=== PATIENT | male | born 1945 | race Caucasian/White ===

== ENCOUNTER → 2016-09-19 | Outpatient (CLI) | payer MEDICARE, OTHER ==
--- NOTE | 2016-09-19 10:48 | ECHOF ---
Referral Reason:R06.02 dyspnea R53.83 fatigue MEASUREMENTS -------- HEIGHT: 180.3 cm WEIGHT: 72.6 kg BP: 189/89 IVSd: 1.3 cm (0.6 - 1.1) LVIDd: 4.3 cm (3.9 - 5.3) LVPWd: 1.2 cm (0.6 - 1.1) IVSs: 1.5 cm LVIDs: 2.5 cm LVPWs: 1.8 cm LAESV Index (A-L): 24.72 ml/m Ao Diam: 4.2 cm (2.0 - 3.7) AV Cusp: 1.4 cm (1.5 - 2.6) LA Diam: 2.4 cm (2.7 - 3.8) MV EXCURSION: 16.312 mm (> 18.000) MV EF SLOPE: 86 mm/s (70 - 150) EPSS: 0.5 cm MV E Robles: 0.63 m/s MV DecT: 136 ms MV A Robles: 0.67 m/s MV E/A Ratio: 0.95 RAP: 5.00 mmHg RVSP: 21.38 mmHg FINDINGS -------- Sinus rhythm. This was a technically good study. There is mild concentric left ventricular hypertrophy. Overall left ventricular systolic function is normal with, an EF between 55 - 60 %. The right ventricle is normal in size and function. Normal LA size by volume 22+/-6 ml/m2. The right atrium is normal in size. The aortic valve is trileaflet, and appears structurally normal. No aortic stenosis or regurgitation. Aortic valve is trileaflet and is mildly thickened. The mitral valve leaflets are mildly thickened. Mild mitral annular calcification present. Mild mitral regurgitation is present. Mild tricuspid regurgitation present. The right ventricular systolic pressure, as measured by Doppler, is 21.38mmHg. Pulmonic valve appears structurally normal. Ascending Aortic Anuerysm measuring 4.2 cm Normal inferior vena cava with normal inspiratory collapse consistent with estimated right atrial pressure of 5 mmHg. The pericardium is normal. CONCLUSIONS -------- 1. Sinus rhythm. 2. The mitral valve leaflets are mildly thickened. 3. Mild mitral annular calcification present. 4. Mild mitral regurgitation is present. 5. Mild tricuspid regurgitation present. 6. The right ventricular systolic pressure, as measured by Doppler, is 21.38mmHg. 7. Pulmonic valve appears structurally normal. 8. Ascending Aortic Anuerysm measuring 4.2cm 9. Normal inferior vena cava with normal inspiratory collapse consistent with estimated right atrial pressure of 5 mmHg. 10. The pericardium is normal. 11. This was a technically good study. 12. There is mild concentric left ventricular hypertrophy. 13. Overall left ventricular systolic function is normal with, an EF between 55 - 60 %. 14. The right ventricle is normal in size and function. 15. Normal LA size by volume 22+/-6 ml/m2. 16. The right atrium is normal in size. 17. The aortic valve is trileaflet, and appears structurally normal. No aortic stenosis or regurgitation. 18. Aortic valve is trileaflet and is mildly thickened. FOOTWEAR STITCHER: Letty Koch RDCS
--- NOTE | 2016-09-19 11:23 | ECHOS ---
Referral Reason:R06.0s dyspnea R53.83 fatigue MEASUREMENTS -------- HEIGHT: 180.3 cm WEIGHT: 72.6 kg BP: WallScoring: string FINDINGS -------- Sinus rhythm. Utilizing the standard Charles protocol the patient was exercised for 9 minutes, 30 seconds, achieving a maximum heart rate of 139 , which is 92 % of predicted maximal heart rate. There was physiologic heart rate and blood pressure response to exercise. Max Heart Rate: 139 % of Max Predicted Heart Rate: 92 Rest Heart Rate: 69 Rest BP: 125/78 Max BP: 189/89 Mets Achieved: 11.1 The test was stopped because of fatigue. Sinus rhythm. In response to stress, the ECG showed no ST-T wave changes (see exercise report for details). In response to stress, the ECG showed no ST-T wave changes (see exercise report for details). There were normal blood pressure and heart rate responses to stress. LV size, wall thickness and systolic function are normal, with an EF of 60%. Echo images were acquired at peak stress which demonstrated appropriate augmentation of all left ventricular segments. CONCLUSIONS -------- 1. Sinus rhythm. 2. Sinus rhythm. 3. In response to stress, the ECG showed no ST-T wave changes (see exercise report for details). 4. In response to stress, the ECG showed no ST-T wave changes (see exercise report for details). 5. There were normal blood pressure and heart rate responses to stress. 6. LV size, wall thickness and systolic function are normal, with an EF of 60%. 7. Echo images were acquired at peak stress which demonstrated appropriate augmentation of all left ventricular segments. 8. XXX functional exercise capacity. No ECG or 2D echocardiographic evidence of inducible ischemia to achieved workload. LOGGING EQUIPMENT OPERATOR: Letty Koch RDCS
== END | disposition home or self-care (01) ==
LOC: RADNMMAIN 09:49
PROVIDERS: ATTEND Family Medicine
DX: R06.02 Shortness of breath (principal); R53.83 Other fatigue
CPT/HCPCS: 93017; 93306; 93350

== ENCOUNTER 2019-10-01 10:45 | Emergency (ER) | payer MEDICARE, OTHER ==
[2019-10-01 10:50] VITALS: RESP 18
--- NOTE | 2019-10-01 11:08 | ED ---
General Adult HPI - General Chief complaint: Urogenital Stated complaint: unable to urinate Time Seen by Provider: 10/01/19 10:50 Source: patient, RN notes reviewed, old records reviewed Mode of arrival: ambulatory Limitations: no limitations - History of Present Illness Initial comments: This is a 74-year-old male who presents emergency Department complaining of unable to urinate ever since he started Norflex. Patient states he is also not had a bowel movement for 2 days. Patient denies any other new medications. Patient denies any vomiting. Patient denies any fever chills. Patient states he has some pressure in the suprapubic region but there is no point tenderness. Patient denies any other symptoms at this time. - Related Data Allergies Allergy/AdvReac Type Severity Reaction Status Date / Time No Known Allergies Allergy Verified 10/01/19 10:50 Review of Systems ROS Statement: Those systems with pertinent positive or pertinent negative responses have been documented in the HPI. ROS Other: All systems not noted in ROS Statement are negative. Past Medical History Past Medical History: Hypertension Additional Past Medical History / Comment(s): enlarged prostate History of Any Multi-Drug Resistant Organisms: None Reported Past Surgical History: Hernia Repair Past Psychological History: No Psychological Hx Reported Smoking Status: Never smoker Past Alcohol Use History: Occasional Past Drug Use History: None Reported General Exam - General Exam Comments Initial Comments: GENERAL: Patient is well-developed and well-nourished. Patient is nontoxic and well- hydrated and is in moderate distress. ENT: Neck is soft and supple. No significant lymphadenopathy is noted. Oropharynx is clear. Moist mucous membranes. Neck has full range of motion without eliciting any pain. EYES: The sclera were anicteric and conjunctiva were pink and moist. Extraocular movements were intact and pupils were equal round and reactive to light. Eyelids were unremarkable. PULMONARY: Unlabored respirations. Good breath sounds bilaterally. No audible rales rhonchi or wheezing was noted. CARDIOVASCULAR: There is a regular rate and rhythm without any murmurs gallops or rubs. ABDOMEN: Patient is mildly distended in the suprapubic region and mildly tender SKIN: Skin is clear with no lesions or rashes and otherwise unremarkable. NEUROLOGIC: Patient is alert and oriented x3. Cranial nerves II through XII are grossly intact. Motor and sensory are also intact. Normal speech, volume and content. Symmetrical smile. MUSCULOSKELETAL: Normal extremities with adequate strength and full range of motion. LYMPHATICS: No significant lymphadenopathy is noted PSYCHIATRIC: Normal psychiatric evaluation. Limitations: no limitations Course Vital Signs 10/01/19 10/01/19 10:48 11:51 Temperature 98.3 F 98.5 F Pulse Rate 98 69 Respiratory 18 18 Rate Blood Pressure 148/106 143/90 O2 Sat by Pulse 98 95 Oximetry Medical Decision Making - Medical Decision Making Patient had a bladder scanner done and it showed that he had over a liter in his bladder. Patient had a Bangura placed and more than a liter of urine came out. Patient felt back to his baseline and wanted the leg bag placed to follow up with Dr. Sheehan on Sunday. - Lab Data Lab Results 10/01/19 Range/Units 11:16 Urine Color Yellow Urine Appearance Clear (Clear) Urine pH 7.0 (5.0-8.0) Ur Specific [place] 1.013 (1.001-1.035) Urine Protein Negative (Negative) Urine Glucose (UA) Negative (Negative) Urine Ketones Negative (Negative) Urine Blood Negative (Negative) Urine Nitrite Negative (Negative) Urine Bilirubin Negative (Negative) Urine Urobilinogen <2.0 (<2.0) mg/dL Ur Leukocyte Esterase Negative (Negative) Disposition Clinical Impression: Urinary retention Disposition: HOME SELF-CARE Condition: Good Instructions (If sedation given, give patient instructions): Urinary Retention in Men (ED) Additional Instructions: Patient should stop taking Norflex Is patient prescribed a controlled substance at d/c from ED?: No Referrals: Kennedy Scruggs MD [STAFF PHYSICIAN] - 1-2 days Time of Disposition: 11:55
--- NOTE | 2019-10-01 11:29 | XR ---
EXAMINATION TYPE: XR KUB DATE OF EXAM: 10/01/2019 COMPARISON: None INDICATION: Abdomen pain TECHNIQUE: Single view abdomen upright view FINDINGS: There is a nonspecific bowel gas pattern. Psoas margins are normal. No organomegaly is present. There is a 1.5 cm calcification overlying the inferior pole left kidney. Couple of additional calcifi cations are present laterally over the left iliac wing. IMPRESSION: 1. Nonspecific bowel gas pattern. 2. 1.5 x 0.5 cm calcification inferior pole left kidney.
[2019-10-01 11:47] LABS: Appearance,Urine Clear (Clear); Bilirubin,Urine Negative (Negative); Blood,Urine Negative (Negative); Color,Urine Yellow; Glucose,Urine (UA) Negative (Negative); Ketones,Urine Negative (Negative); Leukocyte Esterase,Urine Negative (Negative); Nitrite,Urine Negative (Negative); Protein,Urine Negative (Negative); Specific Gravity,Urine 1.013 (1.001-1.035); Urobilinogen,Urine <2.0 mg/dL (<2.0)
[2019-10-01 11:52] VITALS: BP 143/90; PULSE 69; TEMP 98.5
== END 2019-10-01 12:24 | disposition home or self-care (01) ==
LOC: EC 10:45
DX: N40.1 Benign prostatic hyperplasia with lower urinary tract symptoms (principal); R33.8 Other retention of urine
CPT/HCPCS: 51702; 74018; 81003; 99284

== ENCOUNTER 2019-10-06 04:23 | Emergency (ER) | payer MEDICARE, OTHER ==
[2019-10-06 04:32] VITALS: RESP 18; TEMP 98.1
[2019-10-06] MEDS ORDERED: LIDOCAINE URO-JET JELLY 2% 5 ML KIT URETHRAL ONE (04:58)
--- NOTE | 2019-10-06 04:58 | ED ---
Male Urogenital HPI - General Chief complaint: Urogenital Stated complaint: unable to urinate Source: patient Mode of arrival: ambulatory Limitations: no limitations - History of Present Illness Initial comments: Erick is a pleasant 74-year-old woman who was seen and evaluated 5 days ago for acute urinary retention, he reports that on Sunday the he removed his Bangura catheter, he reports he has not been able to urinate for 18 hours since then. His significant discomfort in the lower abdomen. Patient is to follow up with his urologist Dr. Sheehan today. - Related Data Home Medications Medication Instructions Recorded Confirmed Alfuzosin HCl [Alfuzosin HCl ER] 10 mg PO BID 10/01/19 10/01/19 Calcium/Magnesium/Zinc 1 tab PO DAILY 10/01/19 10/01/19 [Lrndrrs-Ngrhgovmd-Xpjy Tablet] Cholecalciferol [Vitamin D3 (25 1,000 unit PO DAILY 10/01/19 10/01/19 Mcg = 1000 Iu)] Cyanocobalamin (Vitamin B-12) 1,000 mcg PO DAILY 10/01/19 10/01/19 [Vitamin B-12] Fish Oil/Dha/Epa [Fish Oil 1,200 1 cap PO DAILY 10/01/19 10/01/19 mg Fish Oil] Folic Acid 0.4 mg PO DAILY 10/01/19 10/01/19 Losartan [Cozaar] 50 mg PO DAILY 10/01/19 10/01/19 Melatonin 5 mg PO HS 10/01/19 10/01/19 Multivit-Min/FA/Lycopen/Lutein 1 tab PO DAILY 10/01/19 10/01/19 [Centrum Silver Tablet] Saw [place] 500 mg PO DAILY 10/01/19 10/01/19 Turmeric Root Extract [Turmeric] 500 mg PO DAILY 10/01/19 10/01/19 Vitamin E 400 unit PO DAILY 10/01/19 10/01/19 Vits A,C,E/Lutein/Minerals 1 tab PO DAILY 10/01/19 10/01/19 [Ocuvite with Lutein Tablet] amLODIPine [Norvasc] 10 mg PO DAILY 10/01/19 10/01/19 Allergies Allergy/AdvReac Type Severity Reaction Status Date / Time orphenadrine [From Norflex] AdvReac unable to Verified 10/06/19 04:31 urinate Review of Systems ROS Statement: Those systems with pertinent positive or pertinent negative responses have been documented in the HPI. ROS Other: All systems not noted in ROS Statement are negative. Past Medical History Past Medical History: Hypertension Additional Past Medical History / Comment(s): enlarged prostate History of Any Multi-Drug Resistant Organisms: None Reported Past Surgical History: Hernia Repair Past Psychological History: No Psychological Hx Reported Smoking Status: Never smoker Past Alcohol Use History: Occasional Past Drug Use History: None Reported General Exam - General Exam Comments Initial Comments: Physical Exam GENERAL: Patient is well-developed and well-nourished. Patient is nontoxic and well-hydrated and is in no distress. HENT: Normocephalic, Atraumatic. EYES: PERRL, EOMI PULMONARY: Unlabored respirations. CARDIOVASCULAR: RRR Warm and well perfused extremities ABDOMEN: Non-distended SKIN: No rashes or bruising : Deferred NEUROLOGIC: Alert and oriented Normal speech Normal gait MUSCULOSKELETAL: Moving all extremities with no apparent injury PSYCHIATRIC: No SI/HI Limitations: no limitations Course Vital Signs 10/06/19 10/06/19 04:28 06:07 Temperature 98.1 F Pulse Rate 75 62 Respiratory 18 18 Rate Blood Pressure 146/103 134/97 O2 Sat by Pulse 98 98 Oximetry Medical Decision Making - Medical Decision Making Patient was seen and evaluated history obtained from patient and review of medical record Bladder scan reveals greater than 800 mL of urine in the bladder Bangura catheter was placed without difficulty, greater than 1 L drained in the first 15 minutes and Bangura was clamped Urinalysis no signs of infection Condition discharge home with Bangura catheter in place to follow up with urology - Lab Data Lab Results 10/06/19 Range/Units 05:21 Urine Color Yellow Urine Appearance Clear (Clear) Urine pH 6.5 (5.0-8.0) Ur Specific [place] 1.015 (1.001-1.035) Urine Protein Negative (Negative) Urine Glucose (UA) Negative (Negative) Urine Ketones Negative (Negative) Urine Blood Moderate H (Negative) Urine Nitrite Negative (Negative) Urine Bilirubin Negative (Negative) Urine Urobilinogen <2.0 (<2.0) mg/dL Ur Leukocyte Esterase Negative (Negative) Urine RBC 34 H (0-5) /hpf Urine WBC 3 (0-5) /hpf Hyaline Casts 4 H (0-2) /lpf Urine Mucus Rare H (None) /hpf Disposition Clinical Impression: Urinary retention Disposition: HOME SELF-CARE Condition: Stable Instructions (If sedation given, give patient instructions): Bangura Catheter Placement and Care (ED) Is patient prescribed a controlled substance at d/c from ED?: No Referrals: Rodney Funk DO [Primary Care Provider] - 1-2 days Michael Hernández MD [STAFF PHYSICIAN] - 1-2 days
[2019-10-06 05:31] LABS: Appearance,Urine Clear (Clear); Bilirubin,Urine Negative (Negative); Blood,Urine Moderate (Negative); Color,Urine Yellow; Glucose,Urine (UA) Negative (Negative); Hyaline Casts,Urine 4 /lpf (0-2); Ketones,Urine Negative (Negative); Leukocyte Esterase,Urine Negative (Negative); Mucus,Urine Rare /hpf; Nitrite,Urine Negative (Negative); PH, Urine 6.5 (5.0-8.0); Protein,Urine Negative (Negative); RBC,Urine 34 /hpf (0-5); Specific Gravity,Urine 1.015 (1.001-1.035); Urobilinogen,Urine <2.0 mg/dL (<2.0); WBC,Urine 3 /hpf (0-5)
[2019-10-06 06:08] VITALS: BP 134/97; PULSE 62
== END 2019-10-06 06:09 | disposition home or self-care (01) ==
LOC: EC 04:23
DX: N40.1 Benign prostatic hyperplasia with lower urinary tract symptoms (principal); R33.9 Retention of urine, unspecified; I10 Essential (primary) hypertension; Z79.899 Other long term (current) drug therapy; Z88.0 Allergy status to penicillin
CPT/HCPCS: 51702; 81001; 99283

== ENCOUNTER → 2019-11-12 | Outpatient (CLI) | payer MEDICARE, OTHER ==
--- NOTE | 2019-11-12 13:59 | CT ---
EXAMINATION TYPE: CT urogram wo/w con DATE OF EXAM: 11/12/2019 COMPARISON: Abdominal x-ray October 01, 2019. HISTORY: gross hematuria CT DLP: 864.3 mGycm, Automated Exposure Control for Dose Reduction was Utilized. CONTRAST: CT scan of the abdomen and pelvis is performed without oral and without and with IV Contrast, patient injected with 100 mL of Isovue 300. Urogram protocol. Three-D reconstructed images created on a work station and reviewed. FINDINGS: KUB: Noncontrast images show possible faint a1 to 2 mm nonobstructing right renal calculus midpole le marisa coronal image 77. There is 4 mm nonobstructing calculus lower pole level coronal image 78. There is more irregular larger 14 mm calculus midpole level coronal image 79 corresponding to x-ray abnorma lity. Postcontrast images show symmetric cortical medullary uptake and excretion without concerning s olid or cystic renal mass or hydronephrosis seen bilaterally. Visualized portion of both ureters show no suspicious calculus or mass. There is a Bangura catheter in the bladder which is poorly distended, there is moderate concentric wall thickening. Finding presumed related to outlet obstruction. There a re nonobstructing left-sided calculi dependently axial image 61, suspect 3 small calculi up to 6 mm i n size. LUNG BASES: Mild bibasilar linear scarring. LIVER/GB: Several thin-walled cysts of varying size and shape scattered throughout the liver. PANCREAS: No significant abnormality is seen. SPLEEN: No significant abnormality is seen. ADRENALS: No significant abnormality is seen. KIDNEYS: No significant abnormality is seen. BOWEL: Small bowel feces sign in the terminal ileum. No suspicious small or large bowel dilatation. F indings consistent with delayed passage of ingested material to colonic level. PROSTATE/SEMINAL VESICLES: Markedly enlarged prostate gland consistent with BPH bulging on bladder ba se. Posterior calcifications are present. LYMPH NODES: No greater than 1cm abdominal or pelvic lymph nodes are appreciated. OSSEOUS STRUCTURES: Moderate multilevel disc space narrowing in the lumbar spine. Slight scoliotic cu rvature. Mild to moderate multilevel anterior and lateral spurring. Loss of normal lumbar lordosis. M oderate axial joint space loss in both hips. OTHER: No significant additional abnormality is seen. IMPRESSION: 1. Nonobstructing left renal calculi. Intraluminal calculi in the bladder. 2. Markedly enlarged prostate gland consistent with BPH.
== END | disposition home or self-care (01) ==
LOC: RADCTMAIN 11:55
DX: N20.0 Calculus of kidney (principal); N21.0 Calculus in bladder; N40.0 Benign prostatic hyperplasia without lower urinary tract symptoms
CPT/HCPCS: 82565; 84520; 74178; 36415; 74400; Q9967

== ENCOUNTER → 2019-11-13 | Outpatient (CLI) | payer MEDICARE, OTHER ==
--- NOTE | 2019-11-13 10:33 | ECHOF ---
Referral Reason:cp, abn ekg MEASUREMENTS -------- HEIGHT: 182.9 cm WEIGHT: 72.6 kg BP: RVIDd: 2.9 cm (< 3.3) IVSd: 1.4 cm (0.6 - 1.1) LVIDd: 4.3 cm (3.9 - 5.3) LVPWd: 1.2 cm (0.6 - 1.1) IVSs: 1.7 cm LVIDs: 2.6 cm LVPWs: 1.9 cm LA Diam: 3.6 cm (2.7 - 3.8) LAESV Index (A-L): 17.64 ml/m Ao Diam: 3.8 cm (2.0 - 3.7) AV Cusp: 1.5 cm (1.5 - 2.6) MV EXCURSION: 22.213 mm (> 18.000) MV EF SLOPE: 114 mm/s (70 - 150) EPSS: 0.3 cm MV E Robles: 0.41 m/s MV DecT: 251 ms MV A Robles: 0.69 m/s MV E/A Ratio: 0.60 RAP: 5.00 mmHg RVSP: 33.63 mmHg FINDINGS -------- Sinus rhythm with extra systolic beats. This was a technically good study. The left ventricular size is normal. There is borderline concentric left ventricular hypertrophy. Overall left ventricular systolic function is normal with, an EF between 55 - 60 %. The diastolic filling pattern is normal for the age of the patient 7.00. The right ventricle is normal in size. The left atrial size is normal. Normal LA size by volume 22+/-6 ml/m2. The right atrial size is normal. The aortic valve is trileaflet, and appears structurally normal. No aortic stenosis or regurgitation. Mild mitral regurgitation is present. No regurgitation noted Right ventricular systolic pressure is normal at < 35 mmHg. There is no pulmonic regurgitation present. Aortic Root is mildly dilated and measures 3.8cm. There is no pericardial effusion. CONCLUSIONS -------- 1. The left ventricular size is normal. 2. There is borderline concentric left ventricular hypertrophy. 3. Overall left ventricular systolic function is normal with, an EF between 55 - 60 %. 4. The diastolic filling pattern is normal for the age of the patient 7.00 5. The right ventricle is normal in size. 6. The left atrial size is normal. 7. The right atrial size is normal. 8. Mild mitral regurgitation is present. 9. No regurgitation noted 10. There is no pulmonic regurgitation present. 11. Aortic Root is mildly dilated and measures 3.8cm. 12. There is no pericardial effusion. CLERICAL ORDER FILLER: Randee Irvin RDCS
--- NOTE | 2019-11-13 13:52 | EST ---
EXERCISE STRESS AGE: 74 SEX: M HT: 6 ft. 1 in WT: 160 lbs. PROTOCOL: Charles STAGE: IV DURATION OF EXERCISE: 10:00 HEART RATE REST: 83 BLOOD PRESSURE REST: 135/101 MAXIMUM HEART RATE ACHIEVED: 141 MAXIMUM BLOOD PRESSURE: 155/85 85% MPHR: 125 100% MPHR: 147 METS: 11.7 INDICATIONS: Chest pain. CLINICAL INFORMATION: Baseline EKG revealed normal sinus rhythm with voltage criteria for LVH and mild ST-T abnormalities suggestive of repolarization changes. Patient walked on standard Charles protocol for 10 minutes, achieved a maximal heart rate of 140 beats per minute which is more than 85% of predicted maximal. Developed fatigue and shortness of breath. There was a lot of baseline artifact. EKG revealed upsloping nonspecific ST-segment changes, but these are considered inconclusive finding given the fact the patient had an LVH with repolarization changes to begin with. . This is an inconclusive stress test with good exercise capacity. Patient had a resting EKG changes which are considered abnormal making this an inconclusive stress test. If ischemia is suspected, a nuclear Cardiolite scan is advisable. MMODL / IJN: [id number] /
== END | disposition home or self-care (01) ==
LOC: RADNMMAIN 08:32
PROVIDERS: ATTEND Family Medicine
DX: I34.0 Nonrheumatic mitral (valve) insufficiency (principal); R94.39 Abnormal result of other cardiovascular function study
CPT/HCPCS: 93017; 93306

== ENCOUNTER 2020-02-15 22:35 | Emergency (ER) | payer MEDICARE, OTHER ==
--- NOTE | 2020-02-15 23:06 | ED ---
Male Urogenital HPI - General Chief complaint: Urogenital Stated complaint: Urogenital Time Seen by Provider: 02/15/20 22:49 Source: patient Mode of arrival: ambulatory Limitations: no limitations - History of Present Illness Initial comments: This patient is a 74-year-old man who presents to be evaluated for suspected urinary retention. The patient states that he had a "laser" prostate surgery performed on Sunday by physician affiliated with a different healthcare system. He states that he had gone home that day and he was urinating relatively well having urine that was for the most part clear until today. The patient notes that he seemed to stop passing urine early in the afternoon and then developed lower abdominal cramping pain. The patient had Bangura catheter placed by nursing staff and states that his symptoms have all resolved. MD Complaint: other (Urinary retention) -: hour(s) Location: abdomen Radiation: none Severity: moderate Quality: other (Cramping) Consistency: constant Improves with: none Worsens with: none recent surgery Reports: urinary retention - Related Data Home Medications Medication Instructions Recorded Confirmed Alfuzosin HCl [Alfuzosin HCl ER] 10 mg PO BID 10/01/19 10/01/19 Calcium/Magnesium/Zinc 1 tab PO DAILY 10/01/19 10/01/19 [Wnfqfae-Ioqzceoqk-Hnpe Tablet] Cholecalciferol [Vitamin D3 (25 1,000 unit PO DAILY 10/01/19 10/01/19 Mcg = 1000 Iu)] Cyanocobalamin (Vitamin B-12) 1,000 mcg PO DAILY 10/01/19 10/01/19 [Vitamin B-12] Fish Oil/Dha/Epa [Fish Oil 1,200 1 cap PO DAILY 10/01/19 10/01/19 mg Fish Oil] Folic Acid 0.4 mg PO DAILY 10/01/19 10/01/19 Losartan [Cozaar] 50 mg PO DAILY 10/01/19 10/01/19 Melatonin 5 mg PO HS 10/01/19 10/01/19 Multivit-Min/FA/Lycopen/Lutein 1 tab PO DAILY 10/01/19 10/01/19 [Centrum Silver Tablet] Saw [place] 500 mg PO DAILY 10/01/19 10/01/19 Turmeric Root Extract [Turmeric] 500 mg PO DAILY 10/01/19 10/01/19 Vitamin E 400 unit PO DAILY 10/01/19 10/01/19 Vits A,C,E/Lutein/Minerals 1 tab PO DAILY 10/01/19 10/01/19 [Ocuvite with Lutein Tablet] amLODIPine [Norvasc] 10 mg PO DAILY 10/01/19 10/01/19 Previous Rx's Medication Instructions Recorded Ciprofloxacin HCl [Cipro] 500 mg PO Q12HR #14 tablet 02/16/20 Allergies Allergy/AdvReac Type Severity Reaction Status Date / Time orphenadrine [From Norflex] AdvReac unable to Verified 02/15/20 22:40 urinate Review of Systems ROS Statement: Those systems with pertinent positive or pertinent negative responses have been documented in the HPI. ROS Other: All systems not noted in ROS Statement are negative. Constitutional: Denies: fever, chills Respiratory: Denies: cough, dyspnea Cardiovascular: Denies: chest pain, palpitations, edema Gastrointestinal: Reports: as per HPI, abdominal pain, constipation. Denies: nausea, vomiting, diarrhea, melena, hematochezia Genitourinary: Reports: other (Urinary retention). Denies: dysuria, frequency, hematuria, testicular pain, testicular mass Musculoskeletal: Denies: back pain Skin: Denies: rash Neurological: Denies: headache, weakness, numbness Past Medical History Past Medical History: Hypertension Additional Past Medical History / Comment(s): enlarged prostate History of Any Multi-Drug Resistant Organisms: None Reported Past Surgical History: Hernia Repair Past Psychological History: No Psychological Hx Reported Smoking Status: Never smoker Past Alcohol Use History: Occasional Past Drug Use History: None Reported General Exam Limitations: no limitations General appearance: alert, in no apparent distress Head exam: Present: atraumatic, normocephalic Eye exam: Present: normal appearance. Absent: scleral icterus, conjunctival injection ENT exam: Present: normal oropharynx Neck exam: Present: normal inspection Respiratory exam: Present: normal lung sounds bilaterally. Absent: respiratory distress, wheezes, rales, rhonchi, stridor Cardiovascular Exam: Present: regular rate, normal rhythm, normal heart sounds. Absent: systolic murmur, diastolic murmur, rubs, gallop GI/Abdominal exam: Present: soft. Absent: distended, tenderness, guarding, radha ound, rigid, mass, pulsatile mass, hernia exam: Present: normal inspection, vertical testicular lie, other (Bangura catheter draining clear urine with a reddish tint). Absent: scrotal swelling Extremities exam: Present: normal inspection, normal capillary refill. Absent: pedal edema, calf tenderness Back exam: Present: normal inspection. Absent: CVA tenderness (R), CVA tenderness (L) Neurological exam: Present: alert Skin exam: Present: warm, dry, intact, normal color. Absent: rash Course Vital Signs 02/15/20 02/15/20 22:36 23:48 Temperature 98.4 F Pulse Rate 83 76 Respiratory 20 18 Rate Blood Pressure 154/96 126/82 O2 Sat by Pulse 98 96 Oximetry Medical Decision Making - Medical Decision Making Patient 74-year-old man with acute urinary retention. Bangura catheter is placed by nursing staff obtaining 750 mL of clear urine with reddish tint. The patient had resolution of his abdominal cramping pain. - Lab Data Lab Results 02/15/20 Range/Units 23:47 Urine Color Dark Yellow Urine Appearance Clear (Clear) Urine pH 7.5 (5.0-8.0) Ur Specific [place] 1.008 (1.001-1.035) Urine Protein 1+ H (Negative) Urine Glucose (UA) Negative (Negative) Urine Ketones Negative (Negative) Urine Blood Large H (Negative) Urine Nitrite Negative (Negative) Urine Bilirubin Negative (Negative) Urine Urobilinogen <2.0 (<2.0) mg/dL Ur Leukocyte Esterase Moderate H (Negative) Urine RBC >182 H (0-5) /hpf Urine WBC 52 H (0-5) /hpf Urine Mucus Rare H (None) /hpf Disposition Clinical Impression: Acute urinary retention Disposition: HOME SELF-CARE Condition: Good Instructions (If sedation given, give patient instructions): Urinary Retention in Men (ED) Prescriptions: Ciprofloxacin HCl [Cipro] 500 mg PO Q12HR #14 tablet Is patient prescribed a controlled substance at d/c from ED?: No Referrals: Rodney Funk DO [Primary Care Provider] - 1-2 days Kennedy Scruggs MD [STAFF PHYSICIAN] - 1-2 days
[2020-02-15 23:50] VITALS: RESP 18
[2020-02-16 00:07] LABS: Appearance,Urine Clear (Clear); Bilirubin,Urine Negative (Negative); Blood,Urine Large (Negative); Color,Urine Dark Yellow; Glucose,Urine (UA) Negative (Negative); Ketones,Urine Negative (Negative); Leukocyte Esterase,Urine Moderate (Negative); Mucus,Urine Rare /hpf; Nitrite,Urine Negative (Negative); PH, Urine 7.5 (5.0-8.0); Protein,Urine 1+ (Negative); RBC,Urine >182 /hpf (0-5); Specific Gravity,Urine 1.008 (1.001-1.035); Urobilinogen,Urine <2.0 mg/dL (<2.0); WBC,Urine 52 /hpf (0-5)
[2020-02-16] MEDS ORDERED: LEVOFLOXACIN 500 MG TAB PO STA (00:09)
[2020-02-16 01:01] VITALS: BP 132/82; PULSE 73; TEMP 98.3
== END 2020-02-16 00:58 | disposition home or self-care (01) ==
LOC: EC 22:35
DX: R33.9 Retention of urine, unspecified (principal); I10 Essential (primary) hypertension; N40.0 Benign prostatic hyperplasia without lower urinary tract symptoms; Z79.899 Other long term (current) drug therapy; Z79.890 Hormone replacement therapy; Z88.8 Allergy status to other drugs, medicaments and biological substances; Z96.0 Presence of urogenital implants
CPT/HCPCS: 81001; 99283